=== PATIENT | male | born 1970 | race African-American/Black ===

== ENCOUNTER 2021-12-03 20:39 | Emergency (ER) | payer OTHER ==
[2021-12-03 20:45] VITALS: BP 135/80; PULSE 85; RESP 17; TEMP 98.1; BMI 25.1
[2021-12-03] MEDS ORDERED: ACETAMINOPHEN 500 MG TABLET (FP) PO ONE (21:20)
[2021-12-03] MEDS ORDERED: ACETAMINOPHEN 325 MG TABLET (FP) ONE (21:31)
== END 2021-12-03 23:56 | disposition home or self-care (01) ==
LOC: JER 20:39
DX: R22.41 Localized swelling, mass and lump, right lower limb (principal)
CPT/HCPCS: 73590-TC-RT-FY; 73610-TC-RT-FY; 93971-TC; 99285-25

== ENCOUNTER 2021-12-04 08:00 | Inpatient (IN) | payer OTHER ==
[2021-12-03 18:46] VITALS: BMI 25.1
[2021-12-04] MEDS: MELATONIN 5 MG TABLETS PO SCH ×2 (01:11→22:10)
[2021-12-04] MEDS: METHOCARBAMOL 500 MG TABLET PO PRN ×3 (01:12→18:20)
[2021-12-04] MEDS: IBUPROFEN 400 MG TABLET (FP) PO PRN (01:12)
[2021-12-04] MEDS: THIAMINE HCL 100 MG TABLET (FP) PO SCH ×2 (01:13→22:10)
[~2021-12-04 08:00] MED LIST: ACETAMINOPHEN 325 MG TABLET (FP) PO PRN; BENZOCAINE/MENTHOL (CHLORASEPTIC ) LOZENGE MM PRN; BISMUTH SUBSALICYLATE 524 MG/30 ML PO PRN; DICYCLOMINE HCL 10 MG CAPSULE PO PRN; IBUPROFEN 400 MG TABLET (FP) PO ONE; LOPERAMIDE HCL 2 MG CAPSULE PO PRN; MAG HYDROX/AL HYDROX/SIMETH 30 ML UNIT-DOSE CUP PO PRN; MAGNESIUM CITRATE 300 ML BOTTLE PO PRN; MAGNESIUM HYDROX 2400MG/30ML ORAL SUSPENSION 30 ML CUP PO PRN; METHOCARBAMOL 500 MG TABLET ONE; NICOTINE POLACRILEX 2 MG GUM BUC PRN; ONDANSETRON *ODT* 4 MG TABLET SL PRN; P-EPHED 60MG/TRIPROLIDI 2.5MG TABLET PO PRN; hydrOXYzine PAMOATE 25 MG CAPSULE (FP) PO ONE; hydrOXYzine PAMOATE 25 MG CAPSULE (FP) PO PRN
[2021-12-04 10:29] LABS: ALBUMIN 2.9 g/dl (3.4-5.0); CALCIUM 9.1 mg/dL (8.5-10.1)
[2021-12-04 10:33] LABS: CREATININE 0.7 mg/dL (0.55-1.3)
[2021-12-04 10:34] LABS: BILIRUBIN,TOTAL 0.3 mg/dL (0.2-1); HEMATOCRIT 34.4 % (35.4-49); HEMOGLOBIN 11.3 GM/dL (11.7-16.9); MCH 27.7 pg (25.7-33.7); MCHC 32.7 g/dl (32.0-35.9); MEAN CELL VOLUME 84.6 fl (80-96); MEAN PLT VOLUME 7.8 fl (7.5-11.1); PLATELET COUNT 229 10^3/uL (134-434); RBC 4.07 M/mm3 (4.00-5.60); RDW 17.9 % (11.9-15.9); TOT PROT 7.4 g/dl (6.4-8.2); WHITE BLOOD COUNT 3.7 K/mm3 (4.0-10.0)
[2021-12-04] MEDS ORDERED: chlordiazePOXIDE HCL 25 MG CAPSULE PO PRN (11:45)
[2021-12-04] MEDS ORDERED: methaDONE HCL 10 MG TABLET (FOR DETOX USE ONLY) PO ONE (11:45)
[2021-12-04] MEDS: PRENATAL VITAMINS W/ FOLIC ACID TABLET (FP) PO SCH (12:15)
[2021-12-04] MEDS: chlordiazePOXIDE HCL 25 MG CAPSULE PO SCH ×2 (18:16→22:10)
[2021-12-04] MEDS: cloNIDine HCL 0.1 MG TABLET PO PRN (22:12)
[2021-12-05] MEDS: chlordiazePOXIDE HCL 25 MG CAPSULE PO SCH ×4 (05:52→22:07)
[2021-12-05] MEDS: IBUPROFEN 600 MG TABLET (FP) PO PRN ×2 (05:53→22:09)
[2021-12-05] MEDS: PRENATAL VITAMINS W/ FOLIC ACID TABLET (FP) PO SCH (10:20)
[2021-12-05] MEDS: METHOCARBAMOL 500 MG TABLET PO PRN ×2 (10:22→17:45)
[2021-12-05] MEDS: MELATONIN 5 MG TABLETS PO SCH (22:07)
[2021-12-05] MEDS: THIAMINE HCL 100 MG TABLET (FP) PO SCH (22:07)
[2021-12-05] MEDS: cloNIDine HCL 0.1 MG TABLET PO PRN (22:11)
[2021-12-06] MEDS: chlordiazePOXIDE HCL 25 MG CAPSULE PO SCH ×5 (06:41→23:04)
[2021-12-06] MEDS ORDERED: methaDONE HCL 10 MG TABLET (FOR DETOX USE ONLY) PO ONE (10:00)
[2021-12-06] MEDS: PRENATAL VITAMINS W/ FOLIC ACID TABLET (FP) PO SCH (10:21)
[2021-12-06] MEDS: cloNIDine HCL 0.1 MG TABLET PO PRN (10:25)
[2021-12-06] MEDS: METHOCARBAMOL 500 MG TABLET PO PRN ×3 (10:26→23:03)
[2021-12-06] MEDS ORDERED: NICOTINE 10 MG CARTRIDGE (INHALER) IH PRN (13:57)
[2021-12-06] MEDS: IBUPROFEN 600 MG TABLET (FP) PO PRN (23:03)
[2021-12-06] MEDS: MELATONIN 5 MG TABLETS PO SCH (23:03)
[2021-12-06] MEDS: THIAMINE HCL 100 MG TABLET (FP) PO SCH (23:03)
[2021-12-07] MEDS ORDERED: chlordiazePOXIDE HCL 10 MG CAPSULE PO PRN
[2021-12-07] MEDS: chlordiazePOXIDE HCL 10 MG CAPSULE PO SCH ×4 (05:37→22:49)
[2021-12-07] MEDS: PRENATAL VITAMINS W/ FOLIC ACID TABLET (FP) PO SCH (10:37)
[2021-12-07] MEDS: METHOCARBAMOL 500 MG TABLET PO PRN ×2 (10:40→18:07)
[2021-12-07] MEDS: IBUPROFEN 400 MG TABLET (FP) PO PRN (18:07)
[2021-12-07] MEDS: MELATONIN 5 MG TABLETS PO SCH (22:49)
[2021-12-07] MEDS: THIAMINE HCL 100 MG TABLET (FP) PO SCH (22:49)
[2021-12-08] MEDS: chlordiazePOXIDE HCL 10 MG CAPSULE PO SCH ×2 (06:16→18:39)
[2021-12-08] MEDS ORDERED: methaDONE HCL 10 MG TABLET (FOR DETOX USE ONLY) PO ONE (10:00)
[2021-12-08] MEDS: PRENATAL VITAMINS W/ FOLIC ACID TABLET (FP) PO SCH (10:27)
[2021-12-08] MEDS: METHOCARBAMOL 500 MG TABLET PO PRN ×2 (10:27→18:42)
[2021-12-08] MEDS: IBUPROFEN 600 MG TABLET (FP) PO PRN (18:41)
[2021-12-08] MEDS: MELATONIN 5 MG TABLETS PO SCH (22:19)
[2021-12-08] MEDS: THIAMINE HCL 100 MG TABLET (FP) PO SCH (22:19)
[2021-12-09] MEDS ORDERED: chlordiazePOXIDE HCL 10 MG CAPSULE PO ONE (05:00)
[2021-12-09 10:25] VITALS: BP 131/80; PULSE 57; RESP 16; TEMP 98
[2021-12-09] MEDS: PRENATAL VITAMINS W/ FOLIC ACID TABLET (FP) PO SCH (10:42)
[2021-12-09] MEDS: IBUPROFEN 400 MG TABLET (FP) PO PRN (10:44)
[2021-12-09] MEDS: METHOCARBAMOL 500 MG TABLET PO PRN (10:44)
== END 2021-12-08 11:26 | disposition home or self-care (01) | DRG 773 ==
LOC: YASAS 08:00 → Y3N 11:42
PROVIDERS: ADMIT Allergy & Immunology; ATTEND Surgery
PROC: HZ2ZZZZ Detoxification Services for Substance Abuse Treatment (ICD-10-PCS; principal; 2021-12-04)
DX: F11.23 Opioid dependence with withdrawal (principal); F10.230 Alcohol dependence with withdrawal, uncomplicated; F17.210 Nicotine dependence, cigarettes, uncomplicated; R60.0 Localized edema; M79.604 Pain in right leg; M25.511 Pain in right shoulder; M25.552 Pain in left hip; Z86.19 Personal history of other infectious and parasitic diseases; Z87.09 Personal history of other diseases of the respiratory system
CPT/HCPCS: 36415; 73590-TC-RT-FY; 73610-TC-RT-FY; 80053; 85027; 86780; 93005; 93010; 93971-TC; 99285-25; C9803-CS; U0003; U0005